=== PATIENT | female | born 1990 | race Caucasian/White ===

== ENCOUNTER 2016-08-20 20:46 | Emergency (ER) | payer BC, MEDICAID, OTHER ==
[2016-08-20] MEDS ORDERED: SODIUM CHLORIDE 0.9% 1,000 ML IV STA ×2 (21:34→23:36)
[2016-08-20] MEDS ORDERED: ONDANSETRON 4 MG/2 ML VIAL IVP STA (21:34)
[2016-08-20] MEDS ORDERED: ONDANSETRON 4 MG/2 ML VIAL ONE (21:40)
[2016-08-20] MEDS ORDERED: LOPERAMIDE 2 MG CAPSULE PO STA (23:36)
[2016-08-20] MEDS ORDERED: LOPERAMIDE 2 MG CAPSULE PO ONE (23:46)
[2016-08-21] MEDS ORDERED: ONDANSETRON ODT 4 MG Prepack 2 TL ONE (00:36)
[2016-08-21] MEDS ORDERED: ONDANSETRON ODT 4 MG Prepack 2 TL STA (00:36)
== END 2016-08-21 00:47 | disposition home or self-care (01) ==
DX: K52.9 Noninfective gastroenteritis and colitis, unspecified (principal)
CPT/HCPCS: 36415; 80053; 81003; 81025; 83690; 85025; 87045; 87046; 96374; 99283; A9270

== ENCOUNTER 2017-09-30 10:06 | Emergency (ER) | payer OTHER ==
[2017-09-30 10:44] LABS: BILIRUBIN,URINE NEGATIVE (NEGATIVE); GLUCOSE, URINE (UA) NEGATIVE (NEGATIVE); KETONES,URINE (UA) NEGATIVE (NEGATIVE); LEUKOCYTE ESTERASE, URINE NEGATIVE (NEGATIVE); NITRITE,URINE NEGATIVE (NEGATIVE); OCCULT BLOOD,URINE NEGATIVE (NEGATIVE); PROTEIN,URINE NEGATIVE (NEGATIVE); UROBILINOGEN,URINE 0.2 (NORMAL) E.U./dL (NORMAL)
[2017-09-30 10:45] LABS: CLARITY,URINE CLEAR (CLEAR)
--- NOTE | 2017-09-30 11:45 | ED Physician Documentation ---
PD HPI FEMALE - Stated complaint Stated Complaint: BLEEDING/5 WKS PREG - Chief complaint Chief Complaint: Abd Pain - History obtained from History obtained from: Patient - History of Present Illness Timing - onset: Today Timing - duration: Minutes Timing - details: Abrupt onset, Now resolved Associated symptoms: Vaginal bleeding. No: Fever, Back pain, Pelvic pain, Vaginal discharge, Genital sore/lesion, Dysuria Contributing factors: OB-HALF SECTION IRONER History: G (2), P (1) Similar symptoms before: Has not had sx before Recently seen: Not recently seen - Additional information Additional information: 27-year-old female is less than 6 weeks but is now resolved. She did have some mild cramping associated with this. She has not been in to see her doctor yet and has not had an ultrasound with this . Review of Systems Constitutional: denies: Fever Eyes: denies: Decreased vision Ears: denies: Ear pain Nose: denies: Congestion Throat: denies: Sore throat Cardiac: denies: Chest pain / pressure, Palpitations Respiratory: denies: Dyspnea, Cough GI: denies: Abdominal Pain, Nausea, Vomiting, Constipation, Diarrhea : reports: Vaginal bleeding. denies: Dysuria, Frequency PD PAST MEDICAL HISTORY - Past Surgical History Past Surgical History: Yes HEENT: Tonsil/Adenoidectomy - Present Medications Home Medications: Ambulatory Orders Medication Instructions Recorded Confirmed Pnv No.122/Iron/Folic Acid 1 tab DAILY 09/30/17 09/30/17 [ Multi Tablet] - Allergies Allergies/Adverse Reactions: Allergies Allergy/AdvReac Type Severity Reaction Status Date / Time adhesive tape Allergy Unknown Verified 09/30/17 10:17 Penicillins Allergy Anaphylaxis Verified 08/20/16 20:55 - Social History Does the pt smoke?: No Smoking Status: Never smoker Does the pt drink ETOH?: No Does the pt have substance abuse?: No - Immunizations Immunizations are current?: Yes - POLST Patient has POLST: No PD ED PE NORMAL - Vitals Vital signs reviewed: Yes (normal ) - General General: Alert and oriented X 3, No acute distress, Well developed/nourished - HEENT HEENT: Atraumatic, PERRL, EOMI - Neck Neck: Supple, no meningeal sign - Respiratory Respiratory: No respiratory distress - Abdomen Abdomen: Soft, Non tender - Back Back: No CVA TTP, No spinal TTP - Derm Derm: Normal color, No rash - Extremities Extremities: No deformity, No edema - Neuro Neuro: Alert and oriented X 3, manager training and development 2-12 intact, No motor deficit, No sensory deficit, Normal speech Eye Opening: Spontaneous Motor: Obeys Commands Verbal: Oriented GCS Score: 15 - Psych Psych: Normal mood, Normal affect Results - Vitals Vitals: Vital Signs - 24 hr 09/30/17 09/30/17 10:14 11:51 Temperature 36.6 C 36.4 C L Heart Rate 65 65 Respiratory 16 18 Rate Blood Pressure 108/65 105/58 L O2 Saturation 100 100 Oxygen O2 Source Room air - Labs Labs: Laboratory Tests 09/30/17 10:35 Urine Color YELLOW Urine Clarity CLEAR Urine pH 6.0 Ur Specific [place] 1.015 Urine Protein NEGATIVE Urine Glucose (UA) NEGATIVE Urine Ketones NEGATIVE Urine Occult Blood NEGATIVE Urine Nitrite NEGATIVE Urine Bilirubin NEGATIVE Urine Urobilinogen 0.2 (NORMAL) Ur Leukocyte Esterase NEGATIVE Ur Microscopic Review NOT INDICATED Urine Culture Comments NOT INDICATED Procedures - Bedside sono Bedside sono by EMP: With use of bedside ultrasound the pelvis is imaged and there is a gestational sac present in the fundus of the uterus measuring 5 weeks 6 days gestation. I am not able to identify a pole or heart rate. PD MEDICAL DECISION MAKING - ED course Complexity details: reviewed results, re-evaluated patient, considered differential, d/w patient ED course: 27-year-old female with first trimester spotting has a gestational sac on bedside evaluation. I have reassured the patient that she may still have a normal and have encouraged her to follow-up with her primary as scheduled. Departure - Departure Disposition: 01 Home, Self Care Clinical Impression: Threatened in first trimester Condition: Stable Instructions: ED Miscarriage Poss Follow-Up: Danette Moscoso PA-C [Primary Care Provider] - Comments: Today we were able to establish that there does appear to be a gestational sac in the uterus about 5 weeks 6 days in size. We were not able to establish the presence of the fetus or heart beat. Follow-up with your obstetrical appointment as planned. Discharge Date/Time: 09/30/17 11:56
[2017-09-30 11:51] VITALS: BP 105/58
== END 2017-09-30 11:56 | disposition home or self-care (01) ==
LOC: ED 10:06
DX: O20.0 Threatened abortion (principal); Z3A.01 Less than 8 weeks gestation of pregnancy
CPT/HCPCS: 81001; 81003; 87086; 99283

== ENCOUNTER 2017-10-30 10:16 | Outpatient (CLI) | payer OTHER ==
[2017-10-30 13:30] LABS: MUDS CUTOFF CONCENTRATIONS CUTOFF CONC BELOW:
[2017-10-30 13:45] LABS: AMPHETAMINE SCREEN,URINE NEGATIVE (NEGATIVE); BENZODIAZEPINES SCREEN, URINE NEGATIVE (NEGATIVE); COCAINE SCREEN URINE NEGATIVE (NEGATIVE); METHADONE SCREEN, URINE NEGATIVE (NEGATIVE); METHAMPHETAMINES SCREEN, URINE NEGATIVE (NEGATIVE); OPIATE SCREEN, URINE NEGATIVE (NEGATIVE); OXYCODONE SCREEN, URINE NEGATIVE (NEGATIVE); PROPOXYPHENE SCREEN, URINE NEGATIVE (NEGATIVE); TRICYCLIC ANTIDEPRESSANT,URINE NEGATIVE (NEGATIVE)
== END 2017-10-30 10:17 ==
LOC: LAB.R 10:16
PROVIDERS: ATTEND Registered Nurse
DX: Z36.9 Encounter for antenatal screening, unspecified (principal)
CPT/HCPCS: 80306

== ENCOUNTER 2017-11-07 11:15 | Outpatient (CLI) | payer OTHER ==
[2017-11-07 11:53] LABS: BASOPHILS % (AUTO) 0.5 %; EOSINOPHILS # (AUTO) 0.1 10^3/uL (0.0-0.7); EOSINOPHILS % (AUTO) 0.6 %; HGB - HEMOGLOBIN 12.3 g/dL (12.0-16.0); LYMPHOCYTES # (AUTO) 1.7 10^3/uL (1.5-3.5); LYMPHOCYTES % (AUTO) 21.5 %; MEAN CORPUSCULAR HEMOGLOBIN 26.1 pg (27.0-31.0); MEAN CORPUSCULAR HGB CONC 32.9 g/dL (32.0-36.0); MEAN CORPUSCULAR VOLUME 79.5 fL (81.0-99.0); MEAN PLATELET VOLUME 8.8 fL (7.9-10.8); MONOCYTES # (AUTO) 0.6 10^3/uL (0.0-1.0); NEUTROPHILS # (AUTO) 5.5 10^3/uL (1.5-6.6); NEUTROPHILS % (AUTO) 69.4 %; PLT - PLATELET COUNT 175 10^3/uL (130-450); RED BLOOD COUNT 4.71 10^6/uL (4.20-5.40); RED CELL DISTRIBUTION WIDTH 16.1 % (12.0-15.0)
[2017-11-07 12:01] LABS: BILIRUBIN,URINE NEGATIVE (NEGATIVE); GLUCOSE, URINE (UA) NEGATIVE (NEGATIVE); KETONES,URINE (UA) NEGATIVE (NEGATIVE); LEUKOCYTE ESTERASE, URINE NEGATIVE (NEGATIVE); NITRITE,URINE NEGATIVE (NEGATIVE); OCCULT BLOOD,URINE TRACE-INTA (NEGATIVE); PROTEIN,URINE NEGATIVE (NEGATIVE); UROBILINOGEN,URINE 0.2 (NORMAL) E.U./dL (NORMAL)
[2017-11-07 12:06] LABS: CLARITY,URINE CLEAR (CLEAR)
[2017-11-07 12:17] LABS: AMORPHOUS SEDIMENT,UR Few /LPF; BACTERIA,URINE Rare /HPF (None Seen); RBC,URINE 0-5 /HPF (0-5); SQUAMOUS EPITHELIAL CELL,UR FEW Squamous (<= Few)
[2017-11-08 13:42] LABS: HEPATITIS B SURFACE ANTIGEN NON-REACTIVE (NON-REACTIVE); HEPATITIS C ANTIBODY NON-REACTIVE (NON-REACTIVE)
[2017-11-08 14:06] LABS: HIV AG/AB 4TH GEN NON-REACTIVE (NON-REACTIVE)
== END 2017-11-07 11:16 | disposition home or self-care (01) ==
LOC: LAB 11:15
PROVIDERS: ATTEND Registered Nurse
DX: Z34.81 Encounter for supervision of other normal pregnancy, first trimester (principal); Z36.9 Encounter for antenatal screening, unspecified
CPT/HCPCS: 36415; 81001; 81599; 85025; 86592; 86762; 86803; 86850; 86900; 86901; 87340; 87389

== ENCOUNTER 2018-01-15 12:27 | Outpatient (CLI) | payer OTHER ==
--- NOTE | 2018-01-15 15:45 | Ultrasound Report ---
Procedure Date: 01/15/2018 Accession Number: [id number] / [id number] Procedure: US - OB Detailed Eval CPT Code: FULL RESULT: EXAM: OB Detailed Eval DATE: 01/15/2018 2:32 PM CLINICAL HISTORY: ENCTR FOR SCREENING TECHNIQUE: Real-time scanning was performed with circulation sales representative static images obtained. COMPARISON: None LAST MENSTRUAL PERIOD: Unsure US Age: 21 weeks 2 days EFW Hadlock: 438 grams EFW % Hadlock: % Heart Rate: 138 bpm EDC: US EDC: 05/26/2018 BPD Hadlock: 22 weeks 0 days; Mean mm 53 HC Hadlock: 21 weeks 0 days; Mean mm 188 AC Hadlock: 21 weeks 3 days; Mean mm 165 FL Hadlock: 21 weeks 3 days; Mean mm 36 Presentation: Variable Placental Location: Anterior Cervical Length: 5.3 cm Amniotic Fluid: RANDY Subjectively normal cm; MVP 4.8 cm FINDINGS: There is a single live intrauterine gestation within normal appearing uterus with a closed cervix of 5.3 cm in length. The fetus is in variable presentation supplied by anterior placenta without evidence of previa and a centrally inserting three-vessel umbilical cord with a heart rate of 138 bpm. By sonographic size the fetus is 21 weeks and 2 days. The following anatomic structures were visualized and appear normal: The intracranial contents, including the ventricles and posterior fossa; the lips and orbits; the spine; the heart, including 4 chamber view and outflow tracts, and diaphragm; the abdominal contents, including the stomach, the bilateral kidneys, and urinary bladder, as well as a normal 3-vessel cord insertion; 4 limbs. IMPRESSION: Single live intrauterine gestation with a sonographic age of 21 weeks and 2 days.
== END 2018-01-15 12:28 | disposition home or self-care (01) ==
LOC: DI 12:27
PROVIDERS: ATTEND Nurse Practitioner Obstetrics & Gynecology
DX: Z36.9 Encounter for antenatal screening, unspecified (principal)
CPT/HCPCS: 76811

== ENCOUNTER 2018-03-05 09:18 | Outpatient (CLI) | payer OTHER ==
[2018-03-05 10:47] LABS: BASOPHILS % (AUTO) 0.3 %; EOSINOPHILS # (AUTO) 0.1 10^3/uL (0.0-0.7); HGB - HEMOGLOBIN 11.8 g/dL (12.0-16.0); LYMPHOCYTES # (AUTO) 2.2 10^3/uL (1.5-3.5); LYMPHOCYTES % (AUTO) 17.9 %; MEAN CORPUSCULAR HEMOGLOBIN 27.9 pg (27.0-31.0); MEAN CORPUSCULAR HGB CONC 33.3 g/dL (32.0-36.0); MEAN CORPUSCULAR VOLUME 83.6 fL (81.0-99.0); MEAN PLATELET VOLUME 9.1 fL (7.9-10.8); MONOCYTES # (AUTO) 0.8 10^3/uL (0.0-1.0); MONOCYTES % (AUTO) 6.1 %; NEUTROPHILS # (AUTO) 9.3 10^3/uL (1.5-6.6); NEUTROPHILS % (AUTO) 74.7 %; PLT - PLATELET COUNT 174 10^3/uL (130-450); RED BLOOD COUNT 4.23 10^6/uL (4.20-5.40); RED CELL DISTRIBUTION WIDTH 14.2 % (12.0-15.0); WHITE BLOOD COUNT 12.4 x10^3/uL (4.8-10.8)
== END 2018-03-05 09:19 | disposition home or self-care (01) ==
LOC: LAB 09:18
PROVIDERS: ATTEND Registered Nurse
DX: Z36.9 Encounter for antenatal screening, unspecified (principal)
CPT/HCPCS: 36415; 82950; 85025; 86850

== ENCOUNTER 2018-04-30 10:17 | Outpatient (CLI) | payer OTHER | END 2018-04-30 10:18 | disposition home or self-care (01) | LOC: LAB.R 10:17 | PROVIDERS: ATTEND Registered Nurse | DX: Z33.1 Pregnant state, incidental (principal) | CPT/HCPCS: 87491; 87591; 87797 ==

== ENCOUNTER 2018-04-30 10:44 | Outpatient (CLI) | payer OTHER ==
[2018-05-02 12:41] LABS: HEPATITIS C ANTIBODY NON-REACTIVE (NON-REACTIVE)
[2018-05-02 13:31] LABS: HIV AG/AB 4TH GEN NON-REACTIVE (NON-REACTIVE)
== END 2018-04-30 10:45 | disposition home or self-care (01) ==
LOC: LAB 10:44
PROVIDERS: ATTEND Registered Nurse
DX: Z33.1 Pregnant state, incidental (principal)
CPT/HCPCS: 36415; 81599; 86592; 86803; 87389; 87491; 87591; 87797

== ENCOUNTER 2018-05-09 17:46 | Outpatient (CLI) | payer OTHER ==
[2018-05-09 19:10] LABS: RUPTURE OF MEMBRANES PLUS NEGATIVE (NEGATIVE)
[2018-05-09 22:48] VITALS: BP 118/70
== END 2018-05-09 23:05 | disposition home or self-care (01) ==
LOC: WFO 17:46 → FBP 17:49 → WFO 23:05
PROVIDERS: ATTEND Registered Nurse
DX: Z34.83 Encounter for supervision of other normal pregnancy, third trimester (principal); Z3A.37 37 weeks gestation of pregnancy
CPT/HCPCS: 84112; 99213

== ENCOUNTER 2018-05-14 11:49 | Outpatient (CLI) | payer OTHER ==
[2018-05-14 12:35] VITALS: BP 125/82
== END 2018-05-14 13:30 | disposition home or self-care (01) ==
LOC: WFO 11:49 → FBP 11:50 → WFO 13:30
PROVIDERS: ATTEND Registered Nurse
DX: O47.1 False labor at or after 37 completed weeks of gestation (principal); Z3A.38 38 weeks gestation of pregnancy
CPT/HCPCS: 99212

== ENCOUNTER 2018-05-20 06:54 | Outpatient (CLI) | payer OTHER ==
[2018-05-20 07:03] VITALS: BP 109/59
[2018-05-20 07:42] LABS: RUPTURE OF MEMBRANES PLUS NEGATIVE (NEGATIVE)
== END 2018-05-20 07:54 | disposition home or self-care (01) ==
LOC: WFO 06:54 → FBP 06:56 → WFO 07:54
PROVIDERS: ATTEND Registered Nurse
DX: O47.1 False labor at or after 37 completed weeks of gestation (principal); Z3A.38 38 weeks gestation of pregnancy
CPT/HCPCS: 84112; 99212

== ENCOUNTER 2018-05-27 08:51 | Inpatient (IN) | payer OTHER ==
[2018-05-27] MEDS ORDERED: SODIUM CHLORIDE FLUSH 0.9% 10 ML SYRINGE IVP PRN (09:20)
[2018-05-27] MEDS ORDERED: LIDOCAINE 1% 50 ML MDV ONE ×2 (09:22→13:04)
[2018-05-27] MEDS ORDERED: MINERAL OIL LIGHT 10 ML MC ONE (09:23)
[2018-05-27] MEDS ORDERED: miSOPROStol 200 MCG TABLET ONE (09:23)
[2018-05-27] MEDS ORDERED: LACTATED RINGERS 1,000 ML IV ONE (09:24)
[2018-05-27] MEDS ORDERED: OXYTOCIN/SODIUM CHLORIDE 0 ML IV ONE ×2 (09:24→09:29)
--- NOTE | 2018-05-27 09:32 | HISTORY & PHYSICAL EXAMINATION ---
Admit History - Visit Reason Visit Reason: Contractions, Membranes rupture - : 2 Parity: 1 Premature: 0 Ectopic: 0 : 0 Care: positive: [facility] Risk/History: positive: None Complications This : positive: None Smoking Status: Never smoker - Mother's Labs Mother's Blood Type: positive: O Mother's RH: positive: Positive GBS: positive: Group B Strep Positive Rubella Status: positive: Immune Meds/Allgy - Home Medications Home Medications: Ambulatory Orders Medication Instructions Recorded Confirmed Pnv No.122/Iron/Folic Acid 1 tab DAILY 09/30/17 09/30/17 [ Multi Tablet] - Allergies Allergies/Adverse Reactions: Allergies Allergy/AdvReac Type Severity Reaction Status Date / Time adhesive tape Allergy Unknown Verified 09/30/17 10:17 Penicillins Allergy Anaphylaxis Verified 08/20/16 20:55 Review of Systems - Constitutional Constitutional: denies: Fatigue, Fever, Chills - Cardiovascular Cariovascular: denies: Irregular heart rate, Palpitations - Gastrointestinal Gastrointestinal: denies: Abdominal pain - Genitourinary Genitourinary: denies: Dysuria, Frequency, Urgency, Hematuria - Psychiatric Psychiatric: denies: Depression, Anxiety Physical - Abdominal Exam Contraction Frequency (min/apart): 2-3 Contraction Intensity: positive: Strong Uterine Resting Tone: positive: Soft - Monitoring Heart Rate Baseline: 130s Strip Review: positive: Category I - Presentation Presentation: positive: Vertex - Vaginal Exam Membranes: positive: Membranes ruptured Dilation (in cm): 9 Effacement (%): 100 Station: positive: 1 - Speculum Exam Speculum Exam Performed: positive: No Findings: positive: Gross leak Plan for Labor - Plan For Labor I expect patient to be DC'd or transferred within 96 hours.: Yes Plan for Labor: HPI: 28yo @ 39.6wks gestation by L=5wk U/S. She reports consistent contractions beginning at 0500 this morning which woke her up and have remained 2-3 minutes apart. Reports leakage of clear vaginal fluid on her drive her. She arrived at approximately 0855. SVE anterior lip, 100, +1, vertex. Contractions palpate strong every 2-3 minutes with soft resting tone. Her has been complicated only by testing positive for GBS at 36wks gestation. She denies VB and reports +FM. Patient is coping well with contractions. supportive at the bedside. G1: 12/29/2015, female infant @ 38.0wks gestation. 7lb 15oz G2: current Allergies to penicillin Medications: PNV, PRN PO zantac labs: GC/CT neg Hep B neg Hep C non-reactive HIV non-reactive Rubella immune RPR non-reactive O pos, antibody neg 1 hour GTT 84 U/S: FAS WNL, anterior placenta, no previa. 3VC. Size c/w dating. A: 28yo @ 39.6wks gestation Active labor GBS positive P: Admit to L&D for expectant management Intermittent auscultation Pt refuses IV insertion despite counseling about importance of active management of the third stage in addition to adequate treatment for GBS positive status. Pt accepts risks of refusal including increased risk for pp hemorrhage and increased risk of life threatening infection to her secondary to GBS positive status. Anticipate spontaneous vaginal delivery.
[2018-05-27] MEDS ORDERED: OXYTOCIN 10 UNIT/ML VIAL ONE (09:33)
[2018-05-27] MEDS ORDERED: VANCOMYCIN INJ 1 GM in SODIUM CHLORIDE 0.9% 250 ML IV SCH (10:00)
[2018-05-27] MEDS ORDERED: OXYTOCIN 10 UNIT/ML VIAL IM ONE (10:07)
[2018-05-27] MEDS ORDERED: HYDROCORTISONE 1% CREAM 28 GM TUBE PR PRN (10:28)
[2018-05-27] MEDS ORDERED: WITCH HAZEL/GLYCERIN 1 EACH MED..PAD TOP PRN (10:28)
--- NOTE | 2018-05-27 10:40 | DELIVERY NOTE ---
Delivery Note - Labor Labor: positive: Spontaneous - Delivery Method Delivery Method: positive: Spontaneous vaginal delivery - Presentation Presentation: positive: Vertex, DELPHINE - left occiput anterior - Nuchal Cord Nuchal Cord: positive: None - Amniotic Fluid Description Amniotic Fluid Description: positive: Clear - Episiotomy Type Episiotomy Type: positive: None - Laceration Laceration: positive: 1st degree - Suture Suture Type: positive: Vicryl Suture Size: positive: 2-0 - Delivery Outcome Delivery Outcome: positive: Livebirth - Victoria: positive: Placed in direct skin contact with mother, Stimulated, Warmed, Jay used Victoria sex: positive: Female - Cord Cord: positive: 3 vessels - Placenta Placenta: positive: Intact, Spontaneous - Estimated Blood Loss Estimated Blood Loss (in cc): 250 - Post Delivery Events Post Delivery Events: positive: No post delivery events - Delivery Comments (Free Text/Narrative) Delivery Comments (Free Text/Narrative): Labor: This 28yo @ 39.6wks gestation by LMP presented at approximately 0850 with c/o contractions q 2-3 minutes which began at 0500 this morning. She reports leakage of clear vaginal fluid which began on her car ride here. Upon evaluation her cervix was anterior lip/100/+1, vertex, with grossly ruptured membranes. FHR pattern demonstrated baseline 130s in a Category I pattern. Normal labor course. The patient progressed to complete with spontaneous urge to push at 1000. : Normal SVB of a viable female infant at 1003 on 05/27/2018. No nuchal. 's 9/9 at 1 and 5 min respectively. The was placed on maternal abdomen, stimulated, dried, and placed skin to skin. The umbilical cord was allowed to stop pulsating at which time it was doubly clamped by CNM and cut by FOB. Cord blood was obtained. Placenta delivered spontaneously and intact at 1007. 3VC. EBL 250mL. Fourth Stage: Uterine fundus firm and there is no excessive bleeding. The perineum, vagina, and cervix were inspected and found to have first degree perineal laceration. Repaired with 2-[address]-1 needle in standard fashion under sterile conditions. Vaginal examination following repair was done. Tissues well approximated. initiated. Family bonding well. Both mother and baby were left in stable condition.
[2018-05-27] MEDS: LACTATED RINGERS 1,000 ML IV SCH ×2 (10:55→16:53)
[2018-05-27] MEDS: IBUPROFEN 800 MG TABLET PO SCH ×3 (11:32→23:40)
[2018-05-27] MEDS: ACETAMINOPHEN 500 MG TABLET PO SCH ×2 (11:32→19:58)
[2018-05-27] MEDS ORDERED: SODIUM CHLORIDE FLUSH 0.9% 10 ML SYRINGE IVP SCH (17:00)
--- NOTE | 2018-05-28 07:44 | Discharge Plan ---
Discharge Plan Disposition: 01 Home, Self Care Condition: Good Diet: Regular Activity Restrictions: No Restrictions Shower Restrictions: No Driving Restrictions: No Weight Bearing: Full Weight No Smoking: If you smoke, Please STOP! Call for help. Follow-up with: Laila Sharpe CNM, ARNP [Provider Admit Priv/Credential] -
--- NOTE | 2018-05-28 07:48 | PROVIDER PROGRESS NOTE ---
Subjective - Subjective Subjective: FINAL PROGRESS NOTE: S: Bonding well with baby. without difficulty. Bleeding decreased and is light. Pain well controlled with ibuprofen and tylenol. Mood is good. Hoping to get to go home today. supportive at the bedside. O: BP 118/74, HR 66, RR 15, T 36.8 Heart RRR w/o M/G/R, lungs CTAB, abdomen soft and nontender with fundus firm at U-2, perineum intact and repair without edema, light lochia rubra, bilateral LE's no edema, mood is good. A: 28yo -->P2 PPD#1 s/p TSVD of viable female infant named Carmina GBS positive - untreated secondary to precipitous delivery 1st degree perineal laceration - intact P: Reviewed self care and warning s/sx. Encouraged continuation of PO ibuprofen and tylenol OTC for pain management. Advised continuation of PNV while . Consent form is signed for bilateral tubal ligation - pt has not scheduled but she is thinking she would like to have performed after the new year. Will call the office to schedule a pre-op appt. She intends to f/u in 1 week for support visit, in 3 weeks for routine visit, and in 8 weeks for annual well woman exam. She and her both verbalized understanding and agree to above plan. They deny further questions or concerns today. Objective - Vital Signs/Intake & Output Vital Signs: Vital Signs x48h Temp Pulse Resp BP Pulse Ox 05/28/18 04:11 36.8 C 66 15 118/74 100 Intake & Output: Intake & Output 05/25/18 05/26/18 05/27/18 05/28/18 23:59 23:59 23:59 23:59 Output Total 875 Balance -875
[2018-05-28] MEDS: IBUPROFEN 800 MG TABLET PO SCH (09:40)
[2018-05-28] MEDS: ACETAMINOPHEN 500 MG TABLET PO SCH (09:41)
[2018-05-28 20:36] VITALS: BP 124/77
--- NOTE | 2018-05-28 20:41 | Labor Flowsheet ---
Labor Flowsheet Datetime Report Generated by CPN: 05/28/2018 20:41 Datetime: 05/28/2018 11:46 VITAL SIGNS NBP Sys/Victoria/Mean (mmHg): 124 : 77 : 88 Pulse: 67 Datetime: 05/27/2018 15:54 SpO2 (%): 100 Datetime: 05/27/2018 11:04 Membranes Ruptured Date/Time: 05/27/2018 09:00 Membranes Rupture Method: Spontaneous Amniotic Fluid Color: Clear Amniotic Fluid Amount: Small Amniotic Fluid Odor: None Datetime: 05/27/2018 10:07 Stage 2 Comments: placenta intact Datetime: 05/27/2018 10:03 STAGE 2 Pushing Position: Pushing with Contractions Pushing Progress: Presenting Part Visible; with Pushing; Pushing Effectively with Contract ions Datetime: 05/27/2018 10:00 VAGINAL EXAM Dilatation (cm): 10.0 Effacement (%): 100 Station: 3 Exam by: Laila Sharpe CNSilvio Vaginal Bleeding: Normal Show Cervix, Consistency: Soft Cervix, Position: Anterior Vaginal Exam Comments: anterior lip reduced Datetime: 05/27/2018 09:50 ASSESSMENT A Monitor Mode: Doppler FHR Baseline Rate : 136 Datetime: 05/27/2018 09:37 Comments: doppler of FHR x 2 minutes with stable FHR, no decels
--- NOTE | 2018-05-29 01:50 | DISCHARGE SUMMARY ---
Physician: JOSE Oquendo DATE OF ADMISSION: 05/27/2018 DATE OF DISCHARGE: 05/28/2018 DIAGNOSES ON ADMISSION 1. A 28-year-old G2, P1-0-0-1 at 39 and 6 weeks' gestation. 2. Active labor. 3. Group B streptococcus positive. DIAGNOSES ON DISCHARGE 1. A 28-year-old G2, P2-0-0-2, status post spontaneous vaginal delivery on 05/27/2018. 2. Normal recovery. BRIEF HISTORY: This is a patient of [facility] who presented on 05/27/2018 with complaints of contractions and leakage of clear vaginal fluid during her drive here. She arrived at approximately 0855, and her cervix was noted to have an anterior lip with 100% effacement and a +1 station in a vertex position. Contractions palpated strong every 2-3 minutes with soft resting tone. The patient was admitted for expectant management. Her was complicated only by testing positive for group B strep at 36 weeks' gestation. She was not treated for group B strep secondary to precipitous delivery. She progressed to spontaneously deliver a viable female named Carmina at 10:03 on 05/27/2018. Apgars were 9 and 9 at one and five minutes, respectively. The perineum, vagina, and cervix were inspected and found to have a first-degree perineal laceration, which was repaired with a 2-0 Vicryl on a CT1 needle in standard fashion under sterile conditions. Estimated blood loss was 250 mL. She has been doing well in her course. She is ambulating and tolerating a regular diet. She is urinating without difficulty, and her lochia is normal. Her pain is well controlled with oral medications. She will be discharged home today on day number one with instructions to continue ibuprofen and Tylenol [id number] for pain management. Advised continuation of vitamin while . She intends to follow up at [facility] in one week for support visit and then in three weeks for routine visit. She has been given precautions to call if she has any worsening fevers, chills, abdominal pain, increased bleeding, or foul-smelling vaginal lochia. TD: 05/28/2018 18:19 MICH
== END 2018-05-28 14:30 | disposition home or self-care (01) | DRG 807 ==
LOC: WFO 08:51 → FBP 08:52 → WFO 09:17 → FBP 09:18
PROVIDERS: ADMIT Nurse Practitioner Obstetrics & Gynecology; ATTEND Nurse Practitioner Obstetrics & Gynecology
PROC: 10E0XZZ Delivery of Products of Conception, External Approach (ICD-10-PCS; principal; 2018-05-27)
PROC: 0HQ9XZZ Repair Perineum Skin, External Approach (ICD-10-PCS; 2018-05-27)
DX: O99.824 Streptococcus B carrier state complicating childbirth (principal); Z37.0 Single live birth; Z3A.39 39 weeks gestation of pregnancy; O62.3 Precipitate labor; O70.0 First degree perineal laceration during delivery; Z88.0 Allergy status to penicillin
CPT/HCPCS: 85025

== ENCOUNTER 2018-08-12 09:56 | Outpatient (CLI) | payer OTHER ==
[2018-08-12 10:22] LABS: HCG UR QUAL NEGATIVE
[2018-08-12 10:23] LABS: BASOPHILS % (AUTO) 0.5 %; EOSINOPHILS # (AUTO) 0.2 10^3/uL (0.0-0.7); EOSINOPHILS % (AUTO) 2.7 %; HGB - HEMOGLOBIN 12.5 g/dL (12.0-16.0); LYMPHOCYTES # (AUTO) 2.2 10^3/uL (1.5-3.5); LYMPHOCYTES % (AUTO) 32.3 %; MEAN CORPUSCULAR HEMOGLOBIN 26.4 pg (27.0-31.0); MEAN CORPUSCULAR HGB CONC 32.4 g/dL (32.0-36.0); MEAN CORPUSCULAR VOLUME 81.4 fL (81.0-99.0); MEAN PLATELET VOLUME 8.8 fL (7.9-10.8); MONOCYTES # (AUTO) 0.5 10^3/uL (0.0-1.0); MONOCYTES % (AUTO) 8.1 %; NEUTROPHILS # (AUTO) 3.8 10^3/uL (1.5-6.6); NEUTROPHILS % (AUTO) 56.4 %; PLT - PLATELET COUNT 213 10^3/uL (130-450); RED BLOOD COUNT 4.73 10^6/uL (4.20-5.40); RED CELL DISTRIBUTION WIDTH 14.1 % (12.0-15.0); WHITE BLOOD COUNT 6.7 x10^3/uL (4.8-10.8)
== END 2018-08-12 09:57 | disposition home or self-care (01) ==
LOC: LAB 09:56
PROVIDERS: ATTEND Obstetrics & Gynecology
DX: Z01.812 Encounter for preprocedural laboratory examination (principal)
CPT/HCPCS: 36415; 81025; 85025

== ENCOUNTER 2018-08-13 07:33 | Day surgery (SDC) | payer OTHER ==
[~2018-08-13 07:33] MED LIST: BUPIVACAINE 0.5%-EPI 1:200000 PF 30 ML VIAL ONE
[2018-08-13] MEDS ORDERED: ceFAZolin 2 GM/50 ML 2 GM/50 ML BAG IV ONE (07:39)
--- NOTE | 2018-08-13 07:49 | ANESTHESIA ---
Pre-Anesthesia VS, & Labs - Diagnosis Desires sterilization - Procedure B Laparoscopic salpingectomy Vital Signs: Last Vital Signs Temp 36.2 C L 08/13/18 07:49 Pulse 80 08/13/18 07:49 Resp 18 08/13/18 07:49 BP 114/76 08/13/18 07:49 Pulse Ox 99 08/13/18 07:49 Height 5 ft 8 in Body Mass Index 22.8 - NPO >8 hours - Is Patient ?: No (-HCG 08/12/18) Home Medications and Allergies Home Medications: Ambulatory Orders No Known Home Medications 08/06/18 No Known Home Medications 08/06/18 Allergies/Adverse Reactions: Allergies Allergy/AdvReac Type Severity Reaction Status Date / Time adhesive tape Allergy blisters Verified 08/06/18 11:53 Penicillins Allergy Unknown Verified 08/06/18 11:53 Anes History & Medical History - Medical History Cardiovascular: reports: None Pulmonary: reports: Asthma Gastrointestinal: reports: GERD Urinary: reports: None Musculoskeletal: reports: None Endocrine/Autoimmune: reports: None Skin: reports: None Smoking Status: Never smoker - Surgical History Eyes Ears Nose Throat (EENT): Tonsil/Adenoidectomy Other Past Surgical History: clot removal near carotid s/p T&A Exam General: Alert, Oriented x3, Cooperative Dental: WNL Mouth Openin Fingerbreadth Neck Mobility: Normal Mallampati classification: I Respiratory: Lungs clear, Normal breath sounds, No respiratory distress Cardiovascular: Regular rate Neurological: Normal speech Mental/Cognitive Status: Alert/Oriented X3, Normal for patient Cognitive Status: Within normal limits Plan Anesthesia Type: General Consent for Procedure(s) Verified and Reviewed: Yes Code Status: Attempt Resuscitation ASA classification: 2-Mild systemic disease Is this case an emergency?: No
[2018-08-13] MEDS ORDERED: LACTATED RINGERS 1,000 ML IV ONE ×2 (08:01→09:43)
[2018-08-13] MEDS ORDERED: BUPIVACAINE 0.5%-EPI 1:200000 PF 30 ML VIAL SUBQ ONE (09:06)
[2018-08-13] MEDS ORDERED: SILVER SULFADIAZINE CREAM 25 GM TUBE TOP ONE (09:34)
[2018-08-13] MEDS ORDERED: HYDROmorphone 0.5 MG/0.5 ML SYRINGE IVP PRN (09:54)
[2018-08-13] MEDS ORDERED: LORazepam 2 MG/ML VIAL IVP PRN (09:54)
[2018-08-13] MEDS ORDERED: oxyCODONE 5 MG TABLET PO PRN (09:54)
[2018-08-13] MEDS ORDERED: ONDANSETRON 4 MG/2 ML VIAL IVP PRN (09:54)
--- NOTE | 2018-08-13 09:58 | OPERATIVE REPORT ---
Operative Report - General Procedure Date: 08/13/18 Planned Procedure: Laproscopic bilateral salpingectomy Pre-Op Diagnosis: Undesired fertility Procedure Performed: Laproscopic bilateral salpingectomy Post Op Diagnosis: Normal pelvis - Procedure Note Primary Surgeon: Chris Gold MD Secondary Surgeon: Janine Sinclair MD Anesthesia Provider: Yayo Interiano CRNA Anesthesia Technique: General ET tube Pathology: Bilateral tubes IV Fluids (mL): 1,100 Estimated Blood Loss (mL): 100 (bleeding at the tenachlem) Urine Output (mL): 10 - Other Other Information/Narrative: [id number]
--- NOTE | 2018-08-13 11:03 | OPERATIVE REPORT ---
DATE OF SERVICE: 08/13/2018 Physician: Chris Gold MD PREOPERATIVE DIAGNOSIS: Undesired fertility. POSTOPERATIVE DIAGNOSIS: Undesired fertility. PROCEDURE PERFORMED: Laparoscopic bilateral salpingectomy. SURGEON: Chris Gold MD DESIGN ENGINEER MARINE EQUIPMENT: Janine Sinclair MD ANESTHESIA: EAGLE Cintron. ANESTHETIC: General via endotracheal tube. IV FLUIDS: 1100 mL URINE OUTPUT: 100 mL ESTIMATED BLOOD LOSS: 100 mL FINDINGS: Upon entering the abdominal cavity, the tubes and ovaries both appear to be free of disease. There is no evidence of adhesions or endometriosis. The appendix, as well as liver likewise appear to be normal. The cul-de-sac was inspected. No evidence of any endometriosis. At the end of the case, there was difficulty with some bleeding from the left tenaculum site from the cervix. PATHOLOGY: Bilateral tubes. DESCRIPTION OF PROCEDURE: Following adequate endotracheal anesthesia, patient was placed in dorsal lithotomy position in [facility]. At this point, she was prepped and draped in the usual fashion. Timeout was performed, at which time the patient's identity as well as concerns were addressed. SHE HAD DIFFICULTY WITH PENICILLIN ALLERGY, WELL A SENSITIVITY TO TAPE. The procedure was then commenced. A speculum was placed in the vagina, cervix visualized, grasped with a single- tooth tenaculum and then a cervical manipulator was placed in the cervical os. At this point, the electrolysis needle operator's gloves were changed and then following local anesthesia with 0.25% Marcaine in subumbilical area, a stab wound was made with a #11 blade. A 5 mm trocar and sheath were placed in the subumbilical area under direct visualization. There was no evidence of any injury to bowel at this time. The abdominal cavity was insufflated with CO2 and then 2 additional ports were placed, both in left and right lower quadrants following local anesthesia with Marcaine and epinephrine. These were both placed under direct visualization. The gallbladder as well as the pelvis was visualized as well as the tubes and ovaries. The right fallopian tube was grasped at its fimbria and then the mesosalpinx was cauterized and transected with the LigaSure. Care was taken to place this as close to the tube as possible to decrease the risk of injury to the ovarian vessels. This was carried all the way to the cornua and then this was transected at the cornua and then the tube was removed through the port. The left side was treated in identical fashion. The fimbriated end was grasped. The mesosalpinx was cauterized and transected. Care was once again taken to make sure this stayed as far away from the ovarian vessels as possible and this was carried all the way to the cornua. Once again, the tube was transected and removed through the port. The remainder of the pelvis was inspected. There was no evidence of any bleeding from the LigaSure sites. The trocars were then both removed under direct visualization. The CO2 was allowed to escape from the subumbilical area and then the trocar was removed. All 3 sites were then closed with 3-0 Monocryl subcuticular, and then Dermabond was used to close the incisions. At this point, the instruments were removed from the vagina. There was difficulty from bleeding from the right tenaculum site. This had to be treated with silver nitrate as well as direct pressure. Direct pressure was carried for 2 minutes and, following removal, there was no evidence of any bleeding from the site over the next minute. The procedure was then terminated. The patient was taken to recovery in stable condition. Sponge and needle counts were correct. TD: 08/13/2018 10:20 MICH
[2018-08-13 11:16] VITALS: BP 102/68
== END 2018-08-13 07:34 | disposition home or self-care (01) ==
LOC: SDS 07:33
PROVIDERS: ATTEND Obstetrics & Gynecology
PROC: 0UT74ZZ Resection of Bilateral Fallopian Tubes, Percutaneous Endoscopic Approach (ICD-10-PCS; principal; 2018-08-13 08:45)
DX: Z30.2 Encounter for sterilization (principal)
CPT/HCPCS: 58661; A9270; J0690; J7120